=== PATIENT | female | born 1990 | race American Indian/Alaskan Native ===

== ENCOUNTER 2017-07-20 16:26 | Emergency (ER) | payer SELFPAY ==
[2017-07-20 17:09] VITALS: BP 132/85
[2017-07-20] MEDS ORDERED: DUONEB *Not for PRN Use IH ONE (17:09)
== END 2017-07-20 19:24 | disposition left against medical advice (07) ==
LOC: ED 16:26
DX: Z53.21 Procedure and treatment not carried out due to patient leaving prior to being seen by health care provider (principal)

== ENCOUNTER 2017-07-24 22:26 | Emergency (ER) | payer SELFPAY ==
[2017-07-24 22:31] VITALS: BP 130/87
[2017-07-24] MEDS ORDERED: ATROVENT IH ONE (23:49)
[2017-07-24] MEDS ORDERED: PROVENTIL IH ONE (23:49)
[2017-07-24] MEDS ORDERED: DECADRON IM ONE (23:50)
--- NOTE | 2017-07-24 23:56 | Emergency Department Report ---
ED Asthma HPI - General Chief Complaint: Adult Asthma Stated Complaint: ASTHMA Time Seen by Provider: 07/24/17 23:48 Source: patient Mode of arrival: Ambulatory Limitations: No Limitations - History of Present Illness MD Complaint: "asthma attack", shortness of breath -: Gradual Severity: moderate Context: other (WEATHER AND CHANGE) Associated Symptoms: chest pain Treatments Prior to Arrival: other (NOTHING) - Related Data Current Asthma Therapy: inhaled steroid Previous Rx's Medication Instructions Recorded Last Taken Type ALBUTEROL Inhaler [Proair] 2 puff IH QID PRN #1 inhalation 07/24/17 Unknown Rx Dexamethasone [Decadron] 20 mg IM ONCE #1 vial 07/24/17 Unknown Rx Fluticasone (Nf) [Flovent 220 2 puff IH BID #1 puff 07/24/17 Unknown Rx MCG/PUFF HFA] Allergies Allergy/AdvReac Type Severity Reaction Status Date / Time No Known Allergies Allergy Unverified 07/20/17 17:05 ED Review of Systems ROS: Stated complaint: ASTHMA Other details as noted in HPI Constitutional: denies: chills, fever Eyes: denies: eye pain, eye discharge, vision change ENT: denies: ear pain, throat pain Respiratory: cough, wheezing. denies: shortness of breath Cardiovascular: chest pain. denies: palpitations Endocrine: no symptoms reported Gastrointestinal: denies: abdominal pain, nausea, diarrhea Genitourinary: denies: urgency, dysuria, discharge Musculoskeletal: denies: back pain, joint swelling, arthralgia Skin: denies: rash, lesions Neurological: denies: headache, weakness, paresthesias Psychiatric: denies: anxiety, depression Hematological/Lymphatic: denies: easy bleeding, easy bruising ED Past Medical Hx - Past Medical History Hx Asthma: Yes - Social History Smoking Status: Never Smoker Substance Use Type: None - Medications Home Medications: Home Medications Medication Instructions Recorded Confirmed Last Taken Type ALBUTEROL Inhaler [Proair] 2 puff IH QID PRN #1 inhalation 07/24/17 Unknown Rx Dexamethasone [Decadron] 20 mg IM ONCE #1 vial 07/24/17 Unknown Rx Fluticasone (Nf) [Flovent 220 2 puff IH BID #1 puff 07/24/17 Unknown Rx MCG/PUFF HFA] ED Physical Exam - General Limitations: No Limitations General appearance: alert, in no apparent distress - Head Head exam: Present: atraumatic, normocephalic - Eye Eye exam: Present: normal appearance - ENT ENT exam: Present: mucous membranes moist - Neck Neck exam: Present: normal inspection - Respiratory Respiratory exam: Present: normal lung sounds bilaterally, wheezes, decreased breath sounds. Absent: respiratory distress - Cardiovascular Cardiovascular Exam: Present: regular rate, normal rhythm. Absent: systolic murmur, diastolic murmur, rubs, gallop - GI/Abdominal GI/Abdominal exam: Present: soft, normal bowel sounds - Rectal Rectal exam: Present: deferred - Extremities Exam Extremities exam: Present: normal inspection, full ROM - Back Exam Back exam: Present: normal inspection, full ROM - Neurological Exam Neurological exam: Present: alert, oriented X3, CN II-XII intact - Psychiatric Psychiatric exam: Present: normal affect, normal mood - Skin Skin exam: Present: warm, dry, intact, normal color. Absent: rash ED Course Vital Signs 07/24/17 07/24/17 07/25/17 22:29 23:16 00:16 Temperature 98.4 F 98.4 F Pulse Rate 83 74 Pulse Rate [ 74 Posterior Bilateral Throughout] Respiratory 20 18 Rate Respiratory 20 Rate [Posterior Bilateral Throughout] Blood Pressure 130/87 130/87 O2 Sat by Pulse 100 100 Oximetry 07/25/17 00:18 Temperature Pulse Rate Pulse Rate [ 76 Posterior Bilateral Throughout] Respiratory Rate Respiratory 20 Rate [Posterior Bilateral Throughout] Blood Pressure O2 Sat by Pulse Oximetry - Reevaluation(s) Reevaluation #1: 07/25/17 00:43 pt is better, no wheezing, will d/chome ED Medical Decision Making - EKG Data -: EKG Interpreted by Me EKG shows normal: sinus rhythm, axis, intervals, QRS complexes, ST-T waves - Medical Decision Making WILL BE D/C HOME WITH INHALED STERIODS AND ONE DOSE OF DEXAMETHASONE, PROAIR INHALER. SHE IS CHRONICALLY ON INHALED STEROIDS Critical care time in (mins) excluding proc time.: 30 Critical care attestation.: If time is entered above; I have spent that time in minutes in the direct care of this critically ill patient, excluding procedure time. [email or web address] Critical Care Time: 30min ED Disposition Clinical Impression: Asthma dependent on inhaled steroids Disposition: - TO HOME OR SELFCARE Is pt being admited?: No Does the pt Need Aspirin: No Condition: Stable Instructions: Asthma (ED) Prescriptions: ALBUTEROL Inhaler [Proair] 2 puff IH QID PRN #1 inhalation PRN Reason: Shortness Of Breath Dexamethasone [Decadron] 20 mg IM ONCE #1 vial Fluticasone (Nf) [Flovent 220 MCG/PUFF HFA] 2 puff IH BID #1 puff Referrals: PRIMARY CARE, [Primary Care Provider] - 3-5 Days
== END 2017-07-25 00:50 | disposition home or self-care (01) ==
LOC: ED 22:26
DX: J45.909 Unspecified asthma, uncomplicated (principal)
CPT/HCPCS: 93005; 93010; 94640; 96372; 99291; J1100